=== PATIENT | female | born 1980 | race Hispanic/Latino ===

== ENCOUNTER → 2020-05-29 | Outpatient (CLI) | payer MEDICARE ==
[~2020-05-29] MED LIST: GADODIAMIDE 10 MMOL/20 ML VIAL IV ONE
== END | disposition home or self-care (01) ==
LOC: RAH 14:16
PROVIDERS: ATTEND Internal Medicine Hematology & Oncology
DX: G93.0 Cerebral cysts (principal); C49.9 Malignant neoplasm of connective and soft tissue, unspecified; C71.0 Malignant neoplasm of cerebrum, except lobes and ventricles; M06.9 Rheumatoid arthritis, unspecified
CPT/HCPCS: 70553; A9579